=== PATIENT | male | born 1995 | race Two or more races ===

== ENCOUNTER 2020-11-21 15:07 | Emergency (ER) | payer SELFPAY ==
[~2020-11-21] VITALS: Ht 180.3 cm; Wt 102.0 kg
[2020-11-21] MEDS ORDERED: BUPR1TAB33 SL (15:46)
[2020-11-21] MEDS ORDERED: IBUPROFEN 400MG TABLET PO ONE (16:30)
[2020-11-21 16:32] VITALS: BP 134/74
== END 2020-11-21 17:01 | disposition home or self-care (01) ==
LOC: ER 15:07
DX: M10.071 Idiopathic gout, right ankle and foot (principal)
CPT/HCPCS: 73630; 99283